=== PATIENT | male | born 1980 | race Caucasian/White ===

== ENCOUNTER 2023-03-28 11:16 | Outpatient (CLI) | payer BC, SELFPAY | END 2023-03-28 11:17 | disposition home or self-care (01) | PROVIDERS: PCP Family Medicine; Visit Provider Family Medicine | DX: Z00.00 Encounter for general adult medical examination without abnormal findings (principal); E78.5 Hyperlipidemia, unspecified | CPT/HCPCS: 80048; 80061 ==

== ENCOUNTER 2024-10-06 14:13 | Outpatient (CLI) | payer BC, SELFPAY ==
--- NOTE | 2024-10-06 14:30 | CRLHL7_ITS ---
For Patients: As a result of the Century Cures Act, medical imaging exams and procedure reports are released immediately into your electronic medical record. You may view this report before your referring provider. If you have questions, please contact your health care provider. INDICATION: Bilateral hearing loss TECHNIQUE: Non-contrast sagittal T1, axial FLAIR, FSE T2, DWI, posterior fossa CISS images provided. Supplemental post contrast T1 weighted axial and coronal high resolution images through the posterior fossa with fat saturation and post contrast whole head axial T1 weighted images submitted. No comparisons. 20 cc of Dotarem gadolinium was administered intravenously. FINDINGS: The ventricles, sulci and gyri are of normal size, shape and contour for age. Midline structures are centrally located. No convincing evidence of suspicious intra- or extra-axial fluid collections. No regions of restricted diffusion. Expected flow-voids within the cavernous carotids and basilar artery. No suspicious masses within the internal auditory canals. No suspicious regions of abnormal parenchymal enhancement. IMPRESSION: 1. No radiographic evidence of acute intracranial abnormalities. Dictated by Naveed Franco MD @ 10/06/2024 6:16:07 PM (Electronically Signed)
== END 2024-10-06 14:14 | disposition home or self-care (01) ==
LOC: MRI 14:14
PROVIDERS: PCP Family Medicine; Visit Provider Otolaryngology
DX: H91.8X3 Other specified hearing loss, bilateral (principal)
CPT/HCPCS: 70553; A9575

== ENCOUNTER 2025-03-10 09:55 | Outpatient (CLI) | payer BC, SELFPAY | END 2025-03-10 09:56 | disposition home or self-care (01) | PROVIDERS: PCP Family Medicine; Visit Provider Family Medicine | DX: Z00.01 Encounter for general adult medical examination with abnormal findings (principal); E78.5 Hyperlipidemia, unspecified; J30.2 Other seasonal allergic rhinitis; J06.9 Acute upper respiratory infection, unspecified; R05.9 Cough, unspecified; H91.21 Sudden idiopathic hearing loss, right ear | CPT/HCPCS: 80048; 80061; 84460; 85025 ==